=== PATIENT | female | born 1960 | race Caucasian/White ===

== ENCOUNTER 2016-12-05 12:58 | Inpatient (IN) | payer MEDICAID ==
[~2016-12-05] VITALS: Ht 162.6 cm; Wt 68.4 kg
[~2016-12-05 12:58] MED LIST: FAMO40TA61 PO; FERR325T20 PO; GABA600T2 PO; NITR100C PO
[2016-12-05] MEDS ORDERED: SODIUM CHLORIDE 0.9% 1,000 ML IV ONE (13:29)
[2016-12-05] MEDS ORDERED: LORazepam 2 MG/ML, 1ML IVPush ONE (13:30)
[2016-12-05] MEDS ORDERED: SODIUM CHLORIDE 0.9% 1,000ML IVBOLUS ONE ×2 (13:30→16:00)
[2016-12-05] MEDS ORDERED: ONDANSETRON 2MG/ML, 2ML IVPush ONE (13:30)
[2016-12-05] MEDS ORDERED: MAALOX/HYOSCYAMINE/LIDOCAINE 45 ML BOTTLE PO ONE (13:30)
[2016-12-05] MEDS ORDERED: FAMOTIDINE 20 MG/2 ML IVP ONE (13:30)
[2016-12-05 13:49] LABS: HEMOGLOBIN 14.6 g/dL (11.7-16.4)
[2016-12-05] MEDS ORDERED: MAALOX/HYOSCYAMINE/LIDOCAINE 45 ML BOTTLE ONE (13:51)
[2016-12-05] MEDS ORDERED: FAMOTIDINE 20 MG/2 ML ONE (13:51)
[2016-12-05] MEDS ORDERED: ONDANSETRON 2MG/ML, 2ML ONE (13:51)
[2016-12-05] MEDS ORDERED: LORazepam 2 MG/ML, 1ML ONE (13:52)
[2016-12-05 14:02] LABS: ASPARTATE AMINO TRANSFERASE 51 U/L (15-37); BLOOD UREA NITROGEN 27 mg/dL (7-18)
[2016-12-05] MEDS ORDERED: IBUP-1222 PO (14:07)
[2016-12-05 14:38] LABS: DIFF TOTAL CELLS COUNTED 100 CELL DIFF
[2016-12-05 14:40] LABS: VERIFY COUNTS? YES
[2016-12-05] MEDS ORDERED: METRONIDAZOLE PMX 500MG/100ML 100 ML IV ONE (16:00)
[2016-12-05] MEDS ORDERED: CIPROFLOXACIN/PMX 400MG/200ML 200 ML IV ONE (16:00)
[2016-12-05] MEDS ORDERED: METRONIDAZOLE PMX 500MG/100ML 100 ML ONE (17:03)
[2016-12-05 17:15] LABS: PATH.CAST-FLAG NOT PRESENT; SPERM-FLAG NOT PRESENT; SRC-FLAG NOT PRESENT; XTAL-FLAG NOT PRESENT; YLC-FLAG NOT PRESENT
[2016-12-05] MEDS ORDERED: GUAIFENESIN/DM 200-20MG, 10ML UDC PO PRN (17:30)
[2016-12-05] MEDS ORDERED: POLYETHYLENE GLYCOL 17 GM PACKET PO PRN (17:30)
[2016-12-05] MEDS ORDERED: ONDANSETRON 2MG/ML, 2ML IVP PRN (17:30)
[2016-12-05] MEDS ORDERED: OCTREOTIDE 500 MCG in SODIUM CHLORIDE 0.9% 249 ML IV SCH ×2 (17:30→20:33)
[2016-12-05] MEDS ORDERED: LABETALOL 5MG/ML, 20ML IV PRN (17:30)
[2016-12-05] MEDS ORDERED: ONDANSETRON ODT 4 MG PO PRN (17:30)
[2016-12-05] MEDS ORDERED: PANTOPRAZOLE 80 MG in SODIUM CHLORIDE 0.9% 50 ML IV ONE (17:30)
[2016-12-05 17:47] LABS: BLOOD UREA NITROGEN 22 mg/dL (7-18)
[2016-12-05] MEDS ORDERED: LORazepam 1MG TABLET PO PRN ×4 (18:00)
[2016-12-05] MEDS ORDERED: LORazepam 2 MG/ML, 1ML IV PRN ×5 (18:00)
[2016-12-05] MEDS ORDERED: CIPROFLOXACIN/PMX 400MG/200ML 200 ML ONE (18:32)
[2016-12-05 18:40] LABS: DAU SCREEN DISCLAIMER
[2016-12-05 19:40] VITALS: BP 149/76
[2016-12-05] MEDS: MORPHINE SULFATE 4 MG/ML, 1ML IVPush PRN (21:09)
[2016-12-05] MEDS: D5%-0.45NACL+KCL 20MEQ 1,000 ML IV SCH (21:45)
[2016-12-05] MEDS: CIPROFLOXACIN/PMX 400MG/200ML 200 ML IV SCH (21:46)
[2016-12-05] MEDS: PANTOPRAZOLE 80 MG in SODIUM CHLORIDE 0.9% 100 ML IV SCH (21:46)
[2016-12-05] MEDS: METRONIDAZOLE PMX 500MG/100ML 100 ML IV SCH (23:04)
[2016-12-06 00:38] VITALS: BP 112/71
[2016-12-06 02:58] VITALS: BP 149/76
[2016-12-06 05:23] LABS: HEMOGLOBIN 9.7 g/dL (11.7-16.4)
[2016-12-06 05:25] LABS: ASPARTATE AMINO TRANSFERASE 25 U/L (15-37); BLOOD UREA NITROGEN 15 mg/dL (7-18)
[2016-12-06] MEDS: D5%-0.45NACL+KCL 20MEQ 1,000 ML IV SCH ×2 (05:29→20:04)
[2016-12-06] MEDS: PANTOPRAZOLE 80 MG in SODIUM CHLORIDE 0.9% 100 ML IV SCH (05:31)
[2016-12-06] MEDS: METRONIDAZOLE PMX 500MG/100ML 100 ML IV SCH ×3 (06:36→22:58)
[2016-12-06 08:30] VITALS: BP 109/66
[2016-12-06] MEDS ORDERED: MAGNESIUM SULFATE PMX 2GM/50ML 50 ML IV ONE (08:30)
[2016-12-06] MEDS: SENNA/DOCUSATE TABLET PO SCH (09:00)
[2016-12-06 09:19] LABS: HEMOGLOBIN 10.1 g/dL (11.7-16.4)
[2016-12-06] MEDS: CIPROFLOXACIN/PMX 400MG/200ML 200 ML IV SCH ×2 (09:48→21:52)
[2016-12-06] MEDS: MORPHINE SULFATE 4 MG/ML, 1ML IVPush PRN (09:48)
[2016-12-06] MEDS ORDERED: OMNIPAQUE 350 MG/ML, 100ML BOTTLE ONE (11:43)
[2016-12-06] MEDS ORDERED: MIDAZOLAM 1 MG/ML, 5ML ONE (13:14)
[2016-12-06] MEDS ORDERED: FENTANYL PF 100 MCG/2ML ONE (13:14)
[2016-12-06 15:48] VITALS: BP 120/74
[2016-12-06 16:18] LABS: HEMOGLOBIN 10.5 g/dL (11.7-16.4)
[2016-12-06] MEDS: PANTOPRAZOLE 40 MG IV IVPush SCH (17:20)
[2016-12-06 19:24] VITALS: BP 118/66
[2016-12-06 22:40] LABS: HEMOGLOBIN 9.8 g/dL (11.7-16.4)
[2016-12-07 00:20] VITALS: BP 121/76
[2016-12-07] MEDS: D5%-0.45NACL+KCL 20MEQ 1,000 ML IV SCH (04:25)
[2016-12-07] MEDS: PANTOPRAZOLE 40 MG IV IVPush SCH ×2 (04:27→17:00)
[2016-12-07 05:49] LABS: HEMOGLOBIN 10.1 g/dL (11.7-16.4)
[2016-12-07] MEDS: METRONIDAZOLE PMX 500MG/100ML 100 ML IV SCH (06:23)
[2016-12-07 07:45] VITALS: BP 146/78
[2016-12-07] MEDS: SENNA/DOCUSATE TABLET PO SCH (07:51)
[2016-12-07] MEDS: SODIUM CHLORIDE 0.9% 1,000 ML IV SCH ×2 (07:54→20:24)
[2016-12-07 09:18] LABS: HEMOGLOBIN 10.7 g/dL (11.7-16.4)
[2016-12-07] MEDS: POTASSIUM CHLORIDE 20 MEQ, MAGNESIUM SULFATE 1 GM, FOLIC ACID 1 MG, THIAMINE 100 MG, MV... IV SCH (10:45)
[2016-12-07] MEDS ORDERED: LORazepam 1MG TABLET ONE (12:03)
[2016-12-07] MEDS: LORazepam 0.5MG TABLET PO PRN (12:04)
[2016-12-07 13:02] VITALS: BP 131/83
[2016-12-07 18:31] VITALS: BP 124/79
[2016-12-07] MEDS ORDERED: CALCIUM CARBONATE 500 MG TAB.CHEW PO ONE (21:00)
[2016-12-08 01:22] VITALS: BP 135/85
[2016-12-08 05:17] LABS: HEMOGLOBIN 9.6 g/dL (11.7-16.4)
[2016-12-08 05:33] LABS: ASPARTATE AMINO TRANSFERASE 65 U/L (15-37); BLOOD UREA NITROGEN 7 mg/dL (7-18)
[2016-12-08] MEDS: PANTOPRAZOLE 40 MG IV IVPush SCH (05:55)
[2016-12-08] MEDS: SODIUM CHLORIDE 0.9% 1,000 ML IV SCH (05:55)
[2016-12-08 06:38] VITALS: BP 161/96
[2016-12-08] MEDS ORDERED: POTASSIUM CHLORIDE 20 MEQ TAB.ER.PRT PO ONE (08:30)
[2016-12-08] MEDS: SENNA/DOCUSATE TABLET PO SCH (09:53)
[2016-12-08 12:47] VITALS: BP 143/91
[2016-12-08] MEDS ORDERED: MAGNESIUM SULFATE PMX 2GM/50ML 50 ML IV ONE (13:00)
[2016-12-08] MEDS: POTASSIUM CHLORIDE 20 MEQ, MAGNESIUM SULFATE 1 GM, FOLIC ACID 1 MG, THIAMINE 100 MG, MV... IV SCH (13:28)
[2016-12-08] MEDS: PANTOPROZOLE 40MG TABLET PO SCH (18:09)
[2016-12-08 20:57] VITALS: BP 132/67
[2016-12-09] MEDS: SODIUM CHLORIDE 0.9% 1,000 ML IV SCH (00:53)
[2016-12-09 01:42] VITALS: BP 138/90
[2016-12-09 05:55] LABS: HEMOGLOBIN 10.4 g/dL (11.7-16.4)
[2016-12-09 05:59] LABS: ASPARTATE AMINO TRANSFERASE 80 U/L (15-37); BLOOD UREA NITROGEN 5 mg/dL (7-18)
[2016-12-09 06:41] VITALS: BP 165/105
[2016-12-09] MEDS ORDERED: POTASSIUM CHLORIDE 20 MEQ TAB.ER.PRT PO ONE (08:00)
[2016-12-09] MEDS: LORazepam 0.5MG TABLET PO PRN (08:43)
[2016-12-09] MEDS: PANTOPROZOLE 40MG TABLET PO SCH (08:43)
[2016-12-09] MEDS: SENNA/DOCUSATE TABLET PO SCH (08:43)
[2016-12-09] MEDS ORDERED: PANT40TA5 PO (09:00)
== END 2016-12-09 10:11 | disposition home or self-care (01) | DRG 377 ==
LOC: ED 14:13 → EDIP 15:53 → 4EST 18:54 → DCLOUNGE 12-09 09:53
PROC: 0T9B70Z Drainage of Bladder with Drainage Device, Via Natural or Artificial Opening (ICD-10-PCS; 2016-12-05)
PROC: 0DJ08ZZ Inspection of Upper Intestinal Tract, Via Natural or Artificial Opening Endoscopic (ICD-10-PCS; principal; 2016-12-06 11:30)
DX: K92.0 Hematemesis (principal); E43 Unspecified severe protein-calorie malnutrition; D62 Acute posthemorrhagic anemia; F10.239 Alcohol dependence with withdrawal, unspecified; E87.2 Acidosis; E87.6 Hypokalemia; K21.0 Gastro-esophageal reflux disease with esophagitis; E86.0 Dehydration; D72.829 Elevated white blood cell count, unspecified; K29.90 Gastroduodenitis, unspecified, without bleeding; K44.9 Diaphragmatic hernia without obstruction or gangrene; R00.0 Tachycardia, unspecified; K70.0 Alcoholic fatty liver; E83.42 Hypomagnesemia; G62.1 Alcoholic polyneuropathy; Z80.9 Family history of malignant neoplasm, unspecified; Z81.8 Family history of other mental and behavioral disorders; Z82.3 Family history of stroke; Z82.49 Family history of ischemic heart disease and other diseases of the circulatory system; Z88.0 Allergy status to penicillin; Z90.710 Acquired absence of both cervix and uterus; Z98.890 Other specified postprocedural states; Z88.2 Allergy status to sulfonamides; Z68.25 Body mass index [BMI] 25.0-25.9, adult
CPT/HCPCS: 36415; 71010; 71275; 74181; 76700; 80048; 80053; 80307; 81001; 82040; 82607; 82962; 83036; 83605; 83690; 83735; 84145; 84439; 84443; 85014; 85018; 85025; 85379; 85610; 86677; 87040; 93005; J0744; J2250; J2354; J2405; J3010; J3411; J3475; J3480; J7042; Q9967; C9113; J2060; J7030; J7050; S0028

== ENCOUNTER 2017-05-16 02:10 | Emergency (ER) | payer MEDICAID ==
[~2017-05-16] VITALS: Ht 162.6 cm; Wt 51.6 kg
[~2017-05-16 02:10] MED LIST changes: +FERR325T18 PO; -FERR325T20 PO; +IBUP-1222 PO; +PANT40TA5 PO
[2017-05-16] MEDS ORDERED: PROCHLORPERAZINE 5 MG/ML, 2ML IVPush ONE (02:30)
[2017-05-16] MEDS ORDERED: DIPHENHYDRAMINE 50 MG/ML, 1ML IVPush ONE (02:30)
[2017-05-16] MEDS ORDERED: SODIUM CHLORIDE FLUSH 10ML SYR IVF ONE (02:30)
[2017-05-16] MEDS ORDERED: SODIUM CHLORIDE 0.9% 1,000ML IVBOLUS ONE (02:30)
[2017-05-16] MEDS ORDERED: KETOROLAC 30 MG/1 ML IVPush ONE (02:30)
[2017-05-16] MEDS ORDERED: DIPHENHYDRAMINE 50 MG/ML, 1ML ONE (02:34)
[2017-05-16] MEDS ORDERED: PROCHLORPERAZINE 5 MG/ML, 2ML ONE (02:34)
[2017-05-16] MEDS ORDERED: KETOROLAC 30 MG/1 ML ONE (02:34)
[2017-05-16 02:46] LABS: HEMATOCRIT 43.2 % (34.6-47.8); HEMOGLOBIN 13.8 g/dL (11.7-16.4); WHITE BLOOD COUNT 7.3 x10^3/uL (3.4-10)
[2017-05-16 02:59] LABS: ASPARTATE AMINO TRANSFERASE 20 U/L (15-37); BLOOD UREA NITROGEN 21 mg/dL (7-18)
[2017-05-16 03:40] VITALS: BP 152/86
== END 2017-05-16 04:12 | disposition home or self-care (01) ==
LOC: ED 04:02
DX: R51 Headache (principal); F10.220 Alcohol dependence with intoxication, uncomplicated; Z90.710 Acquired absence of both cervix and uterus; Z88.0 Allergy status to penicillin; Z88.1 Allergy status to other antibiotic agents; Z88.2 Allergy status to sulfonamides
CPT/HCPCS: 36415; 70450; 80053; 80307; 85025; 96361; 96374; 96375; 99285; J0780; J1200; J1885; J7030

== ENCOUNTER 2017-08-30 16:00 | Emergency (ER) | payer MEDICAID ==
[~2017-08-30] VITALS: Ht 160 cm; Wt 55.8 kg
[2017-08-30 16:06] VITALS: BP 156/103
== END 2017-08-30 18:04 | disposition home or self-care (01) ==
LOC: ED 17:55
DX: J15.9 Unspecified bacterial pneumonia (principal); G62.9 Polyneuropathy, unspecified; Z88.0 Allergy status to penicillin
CPT/HCPCS: 71020; 99284

== ENCOUNTER 2017-09-05 05:39 | Emergency (ER) | payer MEDICAID ==
[~2017-09-05] VITALS: Ht 160 cm; Wt 58.4 kg
[2017-09-05 05:48] VITALS: BP 152/91
== END 2017-09-05 06:59 | disposition home or self-care (01) ==
LOC: ED 06:13
DX: F10.239 Alcohol dependence with withdrawal, unspecified (principal); Z88.0 Allergy status to penicillin
CPT/HCPCS: 99283

== ENCOUNTER 2017-09-06 23:22 | Emergency (ER) | payer MEDICAID ==
[~2017-09-06] VITALS: Ht 165.1 cm; Wt 79.0 kg
[2017-09-06 23:46] VITALS: BP 137/81
== END 2017-09-06 23:52 | disposition home or self-care (01) ==
LOC: ED 23:46
DX: F10.20 Alcohol dependence, uncomplicated (principal); Z88.0 Allergy status to penicillin
CPT/HCPCS: 99283

== ENCOUNTER 2017-09-20 16:50 | Emergency (ER) | payer MEDICAID ==
[~2017-09-20] VITALS: Ht 162.6 cm; Wt 55.0 kg
[2017-09-20] MEDS ORDERED: PLEASE ENTER HEIGHT AND WEIGHT MC SCH (16:57)
[2017-09-20] MEDS ORDERED: FAMOTIDINE 20 MG TABLET PO ONE (17:00)
[2017-09-20] MEDS ORDERED: MAALOX/HYOSCYAMINE/LIDOCAINE 45 ML BTL PO ONE (17:00)
[2017-09-20] MEDS ORDERED: ONDANSETRON ODT 4 MG PO ONE (17:00)
[2017-09-20] MEDS ORDERED: FAMOTIDINE 20 MG TABLET ONE (17:10)
[2017-09-20] MEDS ORDERED: MAALOX/HYOSCYAMINE/LIDOCAINE 45 ML BTL ONE (17:10)
[2017-09-20] MEDS ORDERED: ONDANSETRON ODT 4 MG ONE (17:10)
[2017-09-20 17:26] LABS: ALBUMIN 2.5 g/dL (3.4-5.0); ANION GAP 14 mmol/L (5-15); CHLORIDE 105 mmol/L (98-107)
[2017-09-20 17:29] LABS: ALANINE AMINOTRANSFERASE 116 U/L (12-78); ALKALINE PHOSPHATASE 175 U/L (45-117); BILIRUBIN,TOTAL 1.1 mg/dL (0.2-1.0); MEAN CORPUSCULAR HEMOGLOBIN 31.8 pg (27.0-34.8); MEAN CORPUSCULAR HGB CONC 32.6 g/dL (32.4-35.8); MEAN CORPUSCULAR VOLUME 97.6 fL (80-100); RED BLOOD COUNT 4.31 x10^6/uL (3.82-5.3); RED CELL DISTRIBUTION WIDTH 21.2 % (9.6-15.2)
[2017-09-20 17:35] LABS: MEAN PLATELET VOLUME 10.4 fL (7.4-10.4); PLATELET COUNT 64 x10^3/uL (130-400)
[2017-09-20 17:38] LABS: MD YES
[2017-09-20 17:42] LABS: BAND#(MANUAL) 0.03 x10^3/uL; BANDS%(MANUAL) 1 % (0-7); BASOS% (MANUAL) 3 % (0-1); EOS#(MANUAL) 0.03 x10^3/uL (0.0-0.4); EOS% (MANUAL) 1 % (1-7); LYMPH#(MANUAL) 1.22 x10^3/uL (1-3.4); LYMPHS% (MANUAL) 37 % (22-44); MONOS% (MANUAL) 6 % (2-9); REACTIVE LYMPHS # (MANUAL) 0.03 x10^3/uL (0-0); REACTIVE LYMPHS % (MANUAL) 1 % (0-0)
[2017-09-20 17:43] LABS: ANISOCYTOSIS 2+; MICROCYTOSIS 1+
[2017-09-20 17:45] LABS: <PLATELET ESTIMATE> DECREASED; MYELOCYTES# (MANUAL) 0.03 x10^3/uL (0-0); MYELOCYTES% (MANUAL) 1 % (0-0); SEG#(MANUAL) 1.65 x10^3/uL (1.8-6.8); SEGS% (MANUAL) 50 % (42-75)
[2017-09-20 17:46] LABS: <PLT MORPHOLOGY> NORMAL PLT MORPH
[2017-09-20 18:10] VITALS: BP 117/77
== END 2017-09-20 18:24 | disposition home or self-care (01) ==
LOC: ED 17:45
DX: K29.20 Alcoholic gastritis without bleeding (principal); K70.10 Alcoholic hepatitis without ascites; F10.229 Alcohol dependence with intoxication, unspecified; G62.9 Polyneuropathy, unspecified
CPT/HCPCS: 36415; 80053; 83690; 85025; 99284; Q0162

== ENCOUNTER 2017-10-23 04:07 | Emergency (ER) | payer MEDICAID ==
[~2017-10-23] VITALS: Ht 152.4 cm; Wt 58.5 kg
[2017-10-23 04:08] VITALS: BP 142/90
== END 2017-10-23 05:40 | disposition home or self-care (01) ==
LOC: ED 05:38
DX: S80.01XA Contusion of right knee, initial encounter (principal); G89.11 Acute pain due to trauma; G62.9 Polyneuropathy, unspecified; X58.XXXA Exposure to other specified factors, initial encounter; Y93.89 Activity, other specified; Y92.89 Other specified places as the place of occurrence of the external cause; Y99.8 Other external cause status
CPT/HCPCS: 99284

== ENCOUNTER 2017-12-12 10:36 | Emergency (ER) | payer SELFPAY ==
[~2017-12-12] VITALS: Ht 162.6 cm; Wt 62.0 kg
[2017-12-12 11:19] LABS: BASOPHILS # (AUTO) 0.01 x10^3/uL (0-0.1); BASOPHILS % (AUTO) 0 % (0-1); EOSINOPHILS # (AUTO) 0.13 x10^3/uL (0-0.4); EOSINOPHILS % (AUTO) 3 % (1-7); LYMPHOCYTES # (AUTO) 1.94 x10^3/uL (1-3.4); LYMPHOCYTES % (AUTO) 40 % (22-44); MD NO; MEAN CORPUSCULAR HEMOGLOBIN 29.8 pg (27.0-34.8); MEAN CORPUSCULAR HGB CONC 31.9 g/dL (32.4-35.8); MEAN CORPUSCULAR VOLUME 93.5 fL (80-100); MEAN PLATELET VOLUME 9.6 fL (7.4-10.4); MONOCYTES # (AUTO) 0.26 x10^3/uL (0.2-0.8); MONOCYTES % (AUTO) 5 % (2-9); NEUTROPHILS # (AUTO) 2.48 x10^3/uL (1.8-6.8); NEUTROPHILS % (AUTO) 52 % (42-75); PLATELET COUNT 197 x10^3/uL (130-400); RED BLOOD COUNT 4.46 x10^6/uL (3.82-5.3); RED CELL DISTRIBUTION WIDTH 17.7 % (9.6-15.2)
[2017-12-12 11:24] LABS: ALANINE AMINOTRANSFERASE 43 U/L (12-78); ALBUMIN 3.3 g/dL (3.4-5.0); ANION GAP 7 mmol/L (5-15); CALCIUM 8.1 mg/dL (8.5-10.1); CHLORIDE 111 mmol/L (98-107); CREATININE 0.46 mg/dL (0.55-1.02)
[2017-12-12 11:27] LABS: ALKALINE PHOSPHATASE 139 U/L (45-117); BILIRUBIN,TOTAL 0.4 mg/dL (0.2-1.0); TOTAL PROTEIN 6.9 g/dL (6.4-8.2)
[2017-12-12 12:29] VITALS: BP 125/89
== END 2017-12-12 12:30 | disposition home or self-care (01) ==
LOC: ED 10:41
DX: F41.9 Anxiety disorder, unspecified (principal); F10.120 Alcohol abuse with intoxication, uncomplicated; I87.2 Venous insufficiency (chronic) (peripheral)
CPT/HCPCS: 36415; 80053; 85025; 99284

== ENCOUNTER 2017-12-20 16:58 | Emergency (ER) | payer MEDICAID, OTHER ==
[~2017-12-20] VITALS: Ht 162.6 cm; Wt 68.0 kg
[2017-12-20 17:03] VITALS: BP 125/66
== END 2017-12-20 18:13 | disposition home or self-care (01) ==
LOC: ED 17:45
DX: S00.93XA Contusion of unspecified part of head, initial encounter (principal); W19.XXXA Unspecified fall, initial encounter; Y93.89 Activity, other specified; Y92.89 Other specified places as the place of occurrence of the external cause; Y99.8 Other external cause status
CPT/HCPCS: 70450; 99284